=== PATIENT | female | born 1955 | race Caucasian/White ===

== ENCOUNTER → 2018-12-12 | Day surgery (SDC) | payer OTHER ==
--- NOTE | 2018-12-15 12:33 | OP ---
DATE OF OPERATION: 12/12/2018 PREOPERATIVE DIAGNOSIS: Right axillary adenopathy. POSTOPERATIVE DIAGNOSIS: Right axillary adenopathy. PROCEDURE: Right axillary ultrasound-guided core biopsy with clip placement. ANESTHESIA: Local. ATTENDING SURGEON: Hafsa Spencer MD ESTIMATED BLOOD LOSS: Minimal. COMPLICATIONS: None. DESCRIPTION OF PROCEDURE: The patient was made aware of the risks and benefits of the procedure and consented. She was placed in a supine position, and under sterile conditions with 1% lidocaine for local anesthesia, a small james was made in the skin. Using a 13-gauge suction biopsy device via inferior approach under ultrasound guidance, multiple cores were obtained and submitted to Pathology. Likewise, under ultrasound guidance, a [employer]drom[employer] open coil clip was placed into the lymph node. The patient tolerated the procedure well. Steri-Strips and a sterile bandage was applied. We will contact her with the results. HAFSA SPENCER M.D. [id number]
--- NOTE | 2018-12-17 10:54 | PATH ---
Surgical Pathology Report Patient Name: CECY WALLER [facility]. Rec. #: [id number] /Age/Gender: 1955 (Age: 63) / F Account: [id number] Location: [facility] AMBULATORY Taken: 12/12/2018 Received: 12/12/2018 Reported: 12/17/2018 Physicians: Mini Bower M.D. Specimen(s) Received RIGHT AXILLARY NODE CORE BIOPSY Clinical History History of right breast cancer Final Diagnosis LYMPH NODE, RIGHT AXILLA, CORE BIOPSY: BENIGN LYMPH NODE TISSUE. NEGATIVE FOR CARCINOMA. (SEE NOTE) Note: Cytokeratin (AE 1/3) immunostain (performed at [facility]) is negative. This finding supports the diagnosis. Electronically Signed Marisol Sams M.D. Gross Description Received in formalin labeled "right axillary lymph node," is a 1.7 x 1.6 x 0.3 cm aggregate of multiple bryan-yellow, irregular to cylindrical portions of fibroadipose tissue admixed with blood clot. The formalin is filtered and the specimen is entirely submitted in one cassette. Time to formalin fixation: < 1 minute Total formalin fixation time: Approximately 74 hours. 12/15/201812/15/2018
== END | disposition home or self-care (01) ==
LOC: FRADUS-SUR 14:35
PROVIDERS: ATTEND Surgery Surgical Oncology
PROC: 07B53ZX Excision of Right Axillary Lymphatic, Percutaneous Approach, Diagnostic (ICD-10-PCS; principal; 2018-12-12)
PROC: BH47ZZZ Ultrasonography of Upper Extremity (ICD-10-PCS; 2018-12-12)
DX: R59.0 Localized enlarged lymph nodes (principal)
CPT/HCPCS: 38505; 76942-TC; 87899; 88305-TC; 88342-TC; A4648